=== PATIENT | male | born 1980 | race Hispanic/Latino ===

== ENCOUNTER 2018-01-30 22:06 | Inpatient (IN) | payer SELFPAY ==
[~2018-01-30 22:06] MED LIST: Iopamidol 370 76% 100 ML VIAL ONE
[2018-01-30] MEDS ORDERED: Ketorolac Tromethamine 30 MG/ML VIAL ONE (22:20)
[2018-01-30 22:33] LABS: Bilirubin Negative (Negative); Blood, Urine Negative (Negative); Clarity Clear (Clear); Glucose, Urine (Dipstick) Negative (Negative); Leukocyte Negative (Negative); Nitrite Negative (Negative); Protein, Urine (Dipstick) Trace mg/dL (Neg-Trace); Specific Gravity, Urine 1.015 (1.005-1.030)
[2018-01-30 22:54] LABS: #Basophils 0.1 thou/uL (0.0-0.2); #Lymphocytes 1.6 thou/uL (1.20-3.40); #Monocytes 1.4 thou/uL (0.11-0.59); #Neutrophils 13.8 thou/uL (1.40-6.50); %Basophils 0.6 % (0.0-1.0); %Eosinophils 0.2 % (0.0-10.0); %Lymphocytes 9.5 % (21.0-51.0); %Monocytes 8.1 % (0.0-10.0); %Neutrophils 81.6 % (42.0-75.0); Hemoglobin 17.4 g/dL (14.0-18.0); Mean Corpuscular HGB CONC 35.9 g/dL (32.0-36.0); Mean Corpuscular Hemoglobin 31.8 pg (27.0-31.0); Mean Corpuscular Volume 88.6 fl (80.0-94.0); Mean Platelet Volume 6.6 fL (7.4-10.4); Platelet Count 377 thou/uL (130-400); RBC Distribution Width 10.7 % (11.5-14.5); Red Blood Cell (RBC) Count 5.47 mill/uL (4.70-6.10); White Blood Cell (WBC) Count 16.9 thou/uL (4.8-10.8)
[2018-01-30 22:57] LABS: ALT (SGPT) 26 U/L (8-55); AST (SGOT) 28 U/L (5-34); Alkaline Phosphatase 98 U/L (40-150); Anion Gap 14 mmol/L (10-20); BUN (Urea Nitrogen) 8 mg/dL (8.9-20.6); Bilirubin, Total 0.6 mg/dL (0.2-1.2); Calc. Creatinine Clearance 0 mL/min (70-130); Calcium 9.9 mg/dL (7.8-10.44); Carbon Dioxide 26 mmol/L (22-29); Chloride 104 mmol/L (98-107); Estimated GFR-MDRD Greater than 90; Globulin 3.9 g/dL (2.4-3.5); Glucose 114 mg/dL (70-105); Potassium 3.4 mmol/L (3.5-5.1); Protein, Total 7.9 g/dL (6.0-8.3); Sodium 141 mmol/L (136-145)
--- NOTE | 2018-01-30 23:11 | RAD ---
PORTABLE CHEST: 01/30/18 HISTORY: Fever. Abdominal pain. The lungs appear clear. Heart and mediastinum unremarkable. No significant change from prior exam of 07/26/13. IMPRESSION: No acute finding. POS: [facility]
--- NOTE | 2018-01-30 23:30 | CT ---
CT ABDOMEN AND PELVIS WITH CONTRAST: 01/30/18 Multiple axial tomograms obtained through the abdomen and pelvis with IV enhancement. INDICATIONS: Right abdominal pain. Fever. FINDINGS: Lung bases are clear. Liver, spleen and pancreas unremarkable. Adrenal glands appear normal. Kidneys are unremarkable. There is contrast excretion into the collecting structures. Bladder is unre markable with contrast in the bladder mixed with urine. Small bowel loops unremarkable. Appendix appears normal. There is inflammatory haziness and stranding surrounding the right colon at the hepatic flexure. Ther e is a large pocket of extraluminal gas along the wall of the colon at this location measuring approx imately 1.0 cm. There are two to three other smaller gas pockets within this area of inflammation. No evidence of extraluminal fluid or abscess collection. Aorta is normal caliber. No mass or adenopathy seen. IMPRESSION: There is extraluminal gas along the wall of the right colon at the hepatic flexure with surrounding i nflammatory change. Etiology is not apparent. This may have represented a diverticulum with secondary diverticulitis and extraluminal gas from the diverticulum; however, I do not detect other diverticul a. While the extraluminal gas would indicate probable perforation, there is no fluid or abscess colle ction seen and a ruptured diverticulum is felt most likely. Close followup with antibiotic treatment is recommended. POS: [facility]
[2018-01-30] MEDS ORDERED: Sodium Chloride 0.9% 100 ML ONE (23:45)
[2018-01-30] MEDS ORDERED: Piperacillin/Tazobactam 4.5 GM VIAL ONE (23:45)
[2018-01-31 01:12] VITALS: BMI 21.6
[2018-01-31] MEDS ORDERED: Ondansetron ODT 4 MG TAB SL PRN (01:14)
[2018-01-31] MEDS ORDERED: Ondansetron HCl/PF 4 MG/2 ML Vial IVP PRN (01:14)
[2018-01-31] MEDS: Acetaminophen 325 MG TAB PO PRN ×3 (01:29→10:59)
[2018-01-31] MEDS: Sodium Chloride 0.9% 1,000 ML IV SCH ×2 (01:30→10:59)
[2018-01-31] MEDS ORDERED: Piperacillin/Tazobactam 3.375 GM in Sodium Chloride 0.9% 100 ML IVPB SCH (06:00)
[2018-01-31] MEDS: D5 1/2 NS w/20 mEq KCL 1,000 ML IV SCH ×2 (14:29→21:12)
[2018-01-31] MEDS: Acetaminophen 1,000 MG in Premix Bag 1 BAG IVPB PRN ×2 (16:37→23:34)
[2018-01-31] MEDS: Piperacillin/Tazobactam 3.375 GM in Sodium Chloride 0.9% 100 ML IVPB SCH ×2 (17:55→23:34)
[2018-01-31] MEDS ORDERED: Sodium Chloride 0.9% 1,000 ML IV SCH (18:45)
--- NOTE | 2018-02-01 02:03 | HP ---
CHIEF COMPLAINT: Abdominal pain. HISTORY OF PRESENT ILLNESS: Mr. Orourke is a 37-year-old man who presented to the emergency room late last night with a 1-week history of right upper quadrant pain. He states that the pain came on duri ng the day, but has been persistent since that time. He cannot think of any triggering or alleviatin g factors. Since being admitted to the hospital and placed on IV antibiotics and pain medication, he is not having any pain. He states that 2 days before admission, he began to have fevers and that on the day of admission, he started to have nausea and vomiting, so he decided to come into the emergen cy room. He denies any hematemesis or coffee-ground emesis. He denies any melena or hematochezia. He states that he has been eating normally and having normal bowel movements up until yesterday. Tod ay, he has passed gas, but has not had any bowel movements. He denies any further nausea or vomiting since admission. He did have some fevers this morning. His significant other volunteered the infor mation that on the day before his pain began, he went out with friends and drank about 12 beers and a lso did some cocaine, which he does periodically. He has not done any cocaine since that time nor lucas s he had any alcoholic drinks. He smokes rarely only about 2 cigarettes a day. He denies any unusua l ingestions or ill contacts. He states that the pain is not made worse by eating or by ambulating. PAST MEDICAL HISTORY: None. PAST SURGICAL HISTORY: None. FAMILY HISTORY: None. SOCIAL HISTORY: Patient smokes occasionally and also occasionally does cocaine and drinks intermitte ntly, but sometimes large amounts. No other reported drug use. REVIEW OF SYSTEMS: Ten-system review of systems is negative except per HPI and the following, the bridger ramirez does have some dysuria which is better since coming to the hospital. PHYSICAL EXAMINATION: VITAL SIGNS: T-max in the emergency room was 103.1, T current since admission is 102.1, T current is 98.2, heart rate has been in the 90s-100s, 94% saturated on room air with respiratory rate of 20, bl ood pressure 143/82. GENERAL: Reveals a healthy appearing young man, in no acute distress. He is not flushed or toxic in appearance. He is not jaundiced or icteric. HEENT: Unremarkable. NECK: Supple, without lymphadenopathy or thyroid nodules. HEART: Regular, but slightly tachycardic. No murmurs, rubs, or gallops are appreciated. LUNGS: Clear to auscultation bilaterally. He does not have any pain with deep inspiration. ABDOMEN: Soft and nondistended. No palpable masses or hernias. He is tender to palpation in the ri ght lateral and right upper quadrant without rigidity, rebound, or guarding. He is mildly tender to palpation in the right lower quadrant. EXTREMITIES: Warm and well perfused without edema. NEUROLOGIC: No focal deficits. PSYCHIATRIC: Alert, oriented, and appropriate, conversing appropriately through a Croatian interprete r. LABORATORY AND DIAGNOSTIC DATA: White count in the emergency room was elevated at 16.9, hematocrit 4 8.5, platelets 377,000, potassium is slightly low at 3.4, but other electrolytes were unremarkable. LFTs were normal and UA was clear. He did have slightly high urobilinogen, but no ketones, no protei ns, negative leukocyte esterase and nitrites. CT images are reviewed and I agree with the written re port. 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 No masses are appreciated. No generalized free air or free fluid and no abscess formation. ASSESSMENT: Likely diverticulitis, although other sources of colitis are not excluded. He does have a history of cocaine use just before his use, but this will be in a typical distribution for ischemi c colitis and he has not had any history of bloody diarrhea or generalized abdominal pain. Given the focal findings on CT exam, I favor conservative management with IV antibiotics. The patient has bee n started on this and symptomatically feels better since admission. If his lab work or examination o r vital signs worsens, then reimaging will be undertaken and it is possible that he will proceed to c olectomy, although hopefully this can be managed medically. If his symptoms improve with IV antibiot ics. His diet will be advanced and he will be transitioned to oral antibiotics and discharged home. I have recommended that in about 2 months after he has healed from this episode of diverticulitis, belem e undergo colonoscopy to rule out any underlying abnormalities. I have also recommended that he foll ow up with me at the completion of his course of antibiotics to make sure that his symptoms have reso lved.
[2018-02-01] MEDS: Piperacillin/Tazobactam 3.375 GM in Sodium Chloride 0.9% 100 ML IVPB SCH ×4 (05:24→23:26)
[2018-02-01] MEDS: D5 1/2 NS w/20 mEq KCL 1,000 ML IV SCH ×3 (05:26→23:26)
[2018-02-01 05:36] LABS: #Lymphocytes 1.6 thou/uL (1.20-3.40); #Monocytes 2.3 thou/uL (0.11-0.59); #Neutrophils 14.3 thou/uL (1.40-6.50); %Basophils 0.2 % (0.0-1.0); %Eosinophils 0.1 % (0.0-10.0); %Lymphocytes 8.9 % (21.0-51.0); %Monocytes 12.4 % (0.0-10.0); %Neutrophils 78.4 % (42.0-75.0); Hemoglobin 15.8 g/dL (14.0-18.0); Mean Corpuscular HGB CONC 33.5 g/dL (32.0-36.0); Mean Corpuscular Hemoglobin 30.9 pg (27.0-31.0); Mean Corpuscular Volume 92.3 fl (80.0-94.0); Mean Platelet Volume 5.9 fL (7.4-10.4); Platelet Count 345 thou/uL (130-400); RBC Distribution Width 11.5 % (11.5-14.5); Red Blood Cell (RBC) Count 5.11 mill/uL (4.70-6.10); White Blood Cell (WBC) Count 18.2 thou/uL (4.8-10.8)
[2018-02-01 05:46] LABS: Anion Gap 13 mmol/L (10-20); BUN (Urea Nitrogen) 4 mg/dL (8.9-20.6); Calc. Creatinine Clearance 137 mL/min (70-130); Calcium 9.2 mg/dL (7.8-10.44); Carbon Dioxide 22 mmol/L (22-29); Chloride 105 mmol/L (98-107); Estimated GFR-MDRD Greater than 90; Glucose 112 mg/dL (70-105); Potassium 3.6 mmol/L (3.5-5.1); Sodium 136 mmol/L (136-145)
[2018-02-01 14:59] LABS: Hemoglobin 16.1 g/dL (14.0-18.0); Mean Corpuscular HGB CONC 35.2 g/dL (32.0-36.0); Mean Corpuscular Hemoglobin 32.5 pg (27.0-31.0); Mean Corpuscular Volume 92.2 fl (80.0-94.0); Mean Platelet Volume 6.1 fL (7.4-10.4); Platelet Count 343 thou/uL (130-400); RBC Distribution Width 11.4 % (11.5-14.5); Red Blood Cell (RBC) Count 4.96 mill/uL (4.70-6.10); White Blood Cell (WBC) Count 15.3 thou/uL (4.8-10.8)
[2018-02-01 15:14] LABS: Band 13 % (5-11); Lymphocytes 6 % (21-51); MDiff Complete? YES; Monocytes 14 % (0-10); Neutrophil 64 % (42-75); PLT Morphology Comment Appears Adequate; RBC Morphology Normal; Reactive Lymphocytes 2 % (0-10)
--- NOTE | 2018-02-01 16:34 | PRG ---
DATE OF SERVICE: 02/01/2018 ATTENDING PHYSICIAN: Dr. Bill Flores. SUBJECTIVE: Mr. Orourke is a 37-year-old male who was admitted 1 day ago after a 1-week history of ri ght upper quadrant abdominal pain with a 2-day history of nausea and vomiting. Workup in the ER was suggestive of diverticulitis, although other sources of colitis could not be ruled out. He was admit malcom to the hospital by Dr. Archibald. He was started on a clear liquid diet. He has not had any diarr hea. Abdominal pain has been minimal. He did have an episode of vomiting this morning, however, has tolerated a clear liquid diet subsequently. OBJECTIVE: VITAL SIGNS: Temperature 100.2, pulse 93, respirations 18, O2 sat 94% on room air, blood pressure 14 6/84. GENERAL: Well-developed, well-nourished male, lying in bed, in no acute distress. HEENT: Atraumatic, normocephalic. PULMONARY: Bilateral breath sounds clear. Chest movement symmetrical. CARDIOVASCULAR: Regular rate and rhythm. Heart sounds normal. ABDOMEN: Soft, nondistended, mildly tender to palpation in the right upper, right lower and left low er. No rebound, no guarding. EXTREMITIES: Moves all extremities well. Neurovascularly intact. NEUROLOGIC: GCS 15. Awake, alert, oriented x3. LABORATORY STUDIES: CBC: WBC 15.3 down from 18.2 yesterday, RBC 4.96, hemoglobin 16.1, hematocrit 4 5.7, platelets 343,000. Chemistry: Sodium 136, potassium 3.6, chloride 105, carbon dioxide 22, BUN 4, creatinine 0.75, glucose 112. ASSESSMENT: 1. The patient with likely diverticulitis. 2. Started on Zosyn IV. 3. WBC 15.3 today down from 18.2 yesterday. 13% bandemia. 4. Tolerating clear liquid diet. PLAN: 1. Continue IV antibiotics. 2. Monitor serial labs. 3. Monitor serial abdominal exams. 4. Continue clear liquid diet tonight. The patient was seen and examined with Dr. Flores, who agrees with plan.
[2018-02-02 05:00] LABS: Band 4 % (5-11); Eosinophils 1 % (0-10); Hemoglobin 14.8 g/dL (14.0-18.0); Lymphocytes 19 % (21-51); MDiff Complete? YES; Mean Corpuscular HGB CONC 33.2 g/dL (32.0-36.0); Mean Corpuscular Hemoglobin 30.6 pg (27.0-31.0); Mean Corpuscular Volume 92.2 fl (80.0-94.0); Mean Platelet Volume 6.2 fL (7.4-10.4); Monocytes 14 % (0-10); Neutrophil 62 % (42-75); PLT Morphology Comment Appears Adequate; Platelet Count 357 thou/uL (130-400); RBC Distribution Width 11.4 % (11.5-14.5); Red Blood Cell (RBC) Count 4.85 mill/uL (4.70-6.10); White Blood Cell (WBC) Count 11.6 thou/uL (4.8-10.8)
[2018-02-02] MEDS: Piperacillin/Tazobactam 3.375 GM in Sodium Chloride 0.9% 100 ML IVPB SCH ×3 (07:01→18:21)
[2018-02-02] MEDS: D5 1/2 NS w/20 mEq KCL 1,000 ML IV SCH (08:47)
[2018-02-02] MEDS ORDERED: traMADol HCl 50 MG TAB PO PRN (09:06)
[2018-02-02] MEDS: traMADol HCl 50 MG TAB PO SCH ×3 (10:10→21:11)
[2018-02-02] MEDS: Polyethylene Glycol 3350 17 GM Packet PO SCH (10:47)
[2018-02-02] MEDS: Bisacodyl 10 MG SUPP PR SCH (10:47)
[2018-02-02] MEDS ORDERED: ISOVUE-370 76%-LOCM 1 ML ONE (11:34)
--- NOTE | 2018-02-02 16:06 | PRG ---
DATE OF SERVICE: 02/02/2018 DAILY PROGRESS NOTE ATTENDING PHYSICIAN: Dr. Bill Flores. SUBJECTIVE: Mr. Orourke is a 37-year-old male who was admitted 2 days ago after a 1-week history with right upper quadrant abdominal pain and a 2-day history of nausea and vomiting. Workup in the ER wa s suggestive of diverticulitis, although other sources of colitis cannot be ruled out. He was admitt ed to the hospital by Dr. Archibald. He was started on a clear liquid diet which he has tolerated well . He has not had any further diarrhea. Abdominal pain has been minimal. He does complain of some p ain in the right upper and lower quadrant and right flank. OBJECTIVE: VITAL SIGNS: Temperature 98.0, pulse 80, respirations 16, O2 sat 97% on room air, blood pressure 138 /96. GENERAL: Well-developed, well-nourished male lying in bed in no acute distress. HEENT: Atraumatic, normocephalic. PULMONARY: Bilateral breath sounds clear. Chest movement symmetrical. CARDIOVASCULAR: Regular rate and rhythm. Heart sounds normal. ABDOMEN: Soft, nondistended, mildly tender in the right upper and right lower quadrant. No rebound, no guarding. EXTREMITIES: Moves all extremities well. Neurovascularly intact. NEUROLOGIC: GCS 15. Awake, alert and oriented x3. LABORATORY DATA: None for today. ASSESSMENT: 1. Patient with abdominal pain localized to right side. 2. Started on Zosyn IV. 3. WBC continues to trend down 11.6 today down from 15.3 yesterday. 4. Tolerating clear liquid diet. 5. Reports no bowel movement in several days. PLAN: 1. Continue IV antibiotics. 2. MiraLax and Dulcolax suppository today. 3. Monitor serial abdominal exams. 4. Increase diet to regular. 5. Encourage ambulation. The patient was seen and examined with Dr. Flores who agrees with plan.
--- NOTE | 2018-02-02 17:50 | CT ---
CT ANGIOGRAM ABDOMEN AND PELVIS: 02/02/2018 HISTORY: Abdominal pain with eating. Cocaine use. Evaluate for mesenteric ischemia. COMPARISON: CT abdomen and pelvis from 01/30/2018. TECHNIQUE: Serial axial CT imaging at 2.5 mm intervals from the lung bases through the pubic symphysis, with IV contrast, using a CT angiogram protocol. Coronal and sagittal 3D reformatted imaging obtained. FINDINGS: The imaged lung bases are unremarkable. No free intraperitoneal air is noted. Lack of oral contrast limits assessment of the bowel. The liver, spleen, pancreas, adrenal glands, and kidneys are unremarkable. There is a focal area of colonic wall thickening within the mid portion of the ascending colon, as se en on the prior examination. There is a fluid collection along the posterior aspect of the ascending colon in this region, which contains gas and abuts the lower pole of the right kidney. On the recen t study performed three days prior, this was primarily a gas collection, which appeared to represent an extraluminal gas collection, on the basis of a focal colonic perforation versus a prominent divert iculum. Now, in this region, there is a 2.2 x 1.6 cm rim-enhancing fluid collection with adjacent in flammatory fat stranding. There is no evidence for bowel obstruction or appendicitis. There is no aneurysm or dissection of the abdominal aorta. The imaged arterial structures of the pel vis are unremarkable. The inferior mesenteric artery, superior mesenteric artery, and celiac axis ar e patent. There are two patent renal arteries on the right, and there is a single patent renal arter y on the left. The common hepatic artery emanates from the superior mesenteric artery. There is no lymphadenopathy identified within the retroperitoneum, the mesentery, or the pelvis, and no acute oss eous abnormality is noted. IMPRESSION: 1. Focal area of ascending colonic wall inflammatory change/wall thickening, with a fluid and gas co llection along the posterior margin of the ascending colon, abutting the lower pole of the right kidn ey. This is suspicious for abscess on the basis of focal colonic perforation and/or ascending coloni c diverticulitis with associated perforation. Surgical consultation advised. 2. Arterial structures of the abdomen and pelvis are unremarkable. CODE T POS: [facility]
[2018-02-03] MEDS: Piperacillin/Tazobactam 3.375 GM in Sodium Chloride 0.9% 100 ML IVPB SCH ×5 (00:47→23:25)
[2018-02-03] MEDS: traMADol HCl 50 MG TAB PO SCH ×4 (03:32→21:12)
[2018-02-03] MEDS: Polyethylene Glycol 3350 17 GM Packet PO SCH (09:31)
[2018-02-03] MEDS: Bisacodyl 10 MG SUPP PR SCH (09:35)
[2018-02-04] MEDS: traMADol HCl 50 MG TAB PO SCH ×3 (03:18→15:38)
[2018-02-04] MEDS: Piperacillin/Tazobactam 3.375 GM in Sodium Chloride 0.9% 100 ML IVPB SCH ×2 (05:39→12:17)
[2018-02-04 06:01] LABS: #Basophils 0.1 thou/uL (0.0-0.2); #Eosinphils 0.2 thou/uL (0.0-0.7); #Lymphocytes 1.8 thou/uL (1.20-3.40); #Monocytes 0.9 thou/uL (0.11-0.59); #Neutrophils 4.4 thou/uL (1.40-6.50); %Basophils 0.8 % (0.0-1.0); %Eosinophils 2.9 % (0.0-10.0); %Lymphocytes 24.8 % (21.0-51.0); %Monocytes 11.9 % (0.0-10.0); %Neutrophils 59.6 % (42.0-75.0); Mean Corpuscular Hemoglobin 31.4 pg (27.0-31.0); Mean Corpuscular Volume 92.3 fl (80.0-94.0); Mean Platelet Volume 6.6 fL (7.4-10.4); Platelet Count 413 thou/uL (130-400); RBC Distribution Width 11.5 % (11.5-14.5); White Blood Cell (WBC) Count 7.4 thou/uL (4.8-10.8)
[2018-02-04 06:08] LABS: Anion Gap 14 mmol/L (10-20); BUN (Urea Nitrogen) 12 mg/dL (8.9-20.6); Calc. Creatinine Clearance 140 mL/min (70-130); Calcium 9.4 mg/dL (7.8-10.44); Carbon Dioxide 25 mmol/L (22-29); Chloride 103 mmol/L (98-107); Estimated GFR-MDRD Greater than 90; Glucose 78 mg/dL (70-105); Potassium 3.7 mmol/L (3.5-5.1); Sodium 138 mmol/L (136-145)
[2018-02-04] MEDS: Polyethylene Glycol 3350 17 GM Packet PO SCH (09:06)
[2018-02-04] MEDS: Bisacodyl 10 MG SUPP PR SCH (09:06)
[2018-02-04] MEDS ORDERED: Ciprofloxacin 500 MG TAB PO SCH ×2 (14:30→20:00)
[2018-02-04] MEDS ORDERED: metroNIDAZOLE 500 MG TAB PO SCH (15:00)
[2018-02-04 17:33] VITALS: BP 145/81; TEMP 98.4
== END 2018-02-04 18:07 | disposition home or self-care (01) | DRG 392 ==
LOC: SCSER 22:06 → SURG A 01-31 00:45
PROVIDERS: ADMIT Surgery; ATTEND Surgery
DX: K57.92 Diverticulitis of intestine, part unspecified, without perforation or abscess without bleeding (principal); F17.210 Nicotine dependence, cigarettes, uncomplicated; F14.10 Cocaine abuse, uncomplicated
CPT/HCPCS: 36415; 71045; 74174; 74177; 80048; 80053; 81003; 83605; 85007; 85025; 85027; 87040; 87086; 96360; 96365; 96367; 96375; J0131; J1885; J2270; J2543; J3370; J7050

== ENCOUNTER 2018-03-12 02:12 | Inpatient (IN) | payer SELFPAY ==
[2018-03-12 02:57] LABS: #Basophils 0.1 thou/uL (0.0-0.2); #Monocytes 1.3 thou/uL (0.11-0.59); #Neutrophils 14.3 thou/uL (1.40-6.50); %Basophils 0.7 % (0.0-1.0); %Eosinophils 0.1 % (0.0-10.0); %Lymphocytes 5.7 % (21.0-51.0); %Monocytes 7.7 % (0.0-10.0); %Neutrophils 85.8 % (42.0-75.0); Hemoglobin 16.2 g/dL (14.0-18.0); Mean Corpuscular HGB CONC 36.8 g/dL (32.0-36.0); Mean Corpuscular Hemoglobin 30.8 pg (27.0-31.0); Mean Corpuscular Volume 83.9 fL (78.0-98.0); Mean Platelet Volume 6.4 fL (7.4-10.4); Platelet Count 283 thou/uL (130-400); RBC Distribution Width 10.8 % (11.5-14.5); Red Blood Cell (RBC) Count 5.26 mill/uL (4.70-6.10); White Blood Cell (WBC) Count 16.6 thou/uL (4.8-10.8)
[2018-03-12] MEDS ORDERED: Ketorolac Tromethamine 30 MG/ML VIAL ONE (02:57)
[2018-03-12 03:10] LABS: ALT (SGPT) 14 U/L (8-55); AST (SGOT) 11 U/L (5-34); Alkaline Phosphatase 78 U/L (40-150); Anion Gap 13 mmol/L (10-20); BUN (Urea Nitrogen) 12 mg/dL (8.9-20.6); Bilirubin, Total 0.7 mg/dL (0.2-1.2); Calc. Creatinine Clearance 0 mL/min (70-130); Calcium 9.4 mg/dL (7.8-10.44); Carbon Dioxide 23 mmol/L (22-29); Chloride 105 mmol/L (98-107); Estimated GFR-MDRD 85; Globulin 3.2 g/dL (2.4-3.5); Glucose 131 mg/dL (70-105); Potassium 3.3 mmol/L (3.5-5.1); Protein, Total 7.2 g/dL (6.0-8.3); Sodium 138 mmol/L (136-145)
[2018-03-12] MEDS ORDERED: Dexamethasone 10 MG/ML VIAL ONE (03:10)
[2018-03-12] MEDS ORDERED: Famotidine/PF 20 mg/2ml Vial ONE (03:10)
[2018-03-12] MEDS ORDERED: Metoclopramide HCl 10 MG/2 ML VIAL ONE (03:10)
[2018-03-12 03:12] LABS: Bilirubin Negative (Negative); Blood, Urine Negative (Negative); Clarity Clear (Clear); Glucose, Urine (Dipstick) Negative (Negative); Leukocyte Negative (Negative); Nitrite Negative (Negative); Protein, Urine (Dipstick) 30 mg/dL (Neg-Trace); Specific Gravity, Urine 1.024 (1.002-1.036)
[2018-03-12 03:20] LABS: Bacteria/HPF Rare-Few HPF (None Seen); Hyaline Casts/LPF 0-3 HYALINE CAST LPF (0-3 Hyaline); RBC/HPF 0-3 HPF (0-3); Squamous Epithelial 0-3 HPF (0-3); WBC/HPF 0-3 HPF (0-3)
[2018-03-12] MEDS ORDERED: Piperacillin/Tazobactam 4.5 GM VIAL ONE (03:46)
[2018-03-12] MEDS ORDERED: Sodium Chloride 0.9% 100 ML ONE (03:48)
[2018-03-12] MEDS ORDERED: Acetaminophen 325 MG TAB ONE (04:02)
[2018-03-12 04:08] LABS: CKMB 0.2 ng/mL (0-6.6); Troponin I 0.017 ng/mL (< 0.028)
[2018-03-12 04:33] LABS: Amphetamine Not Detected (NotDetected); Barbiturates Screen Not Detected (NotDetected); Benzodiazepine Screen Not Detected (NotDetected); Cocaine Metabolite Screen Detected (NotDetected); Medtox Control Line Valid? VALID (VALID); Methadone Not Detected (NotDetected); Methamphetamine Not Detected (NotDetected); Opiate Screen Not Detected (NotDetected); Oxycodone Screen Not Detected (NotDetected); Phencyclidine (PCP) Not Detected (NotDetected); THC/Cannabinoid Screen Not Detected (NotDetected); Tricyclic Screen Not Detected (NotDetected)
[2018-03-12] MEDS ORDERED: Ondansetron ODT 4 MG TAB SL PRN (05:09)
[2018-03-12] MEDS ORDERED: Acetaminophen 325 MG TAB PO PRN (05:09)
[2018-03-12] MEDS ORDERED: Ondansetron HCl/PF 4 MG/2 ML Vial IVP PRN (05:09)
[2018-03-12 05:18] VITALS: BMI 24.3
[2018-03-12 05:43] LABS: HIV (1/2) Antibody/Antigen Non-Reactive (NonReactive); HIV 1/2 INDEX 0.14 S/CO (<1.00)
[2018-03-12 06:44] LABS: Lactic Acid 0.8 mmol/L (0.5-2.2)
--- NOTE | 2018-03-12 08:41 | RAD ---
PORTABLE CHEST: Date: 03/12/18 HISTORY: Fever. Left-sided pain. FINDINGS: Heart size and mediastinum are within normal limits. Lungs are clear of any infiltrative process. No significant bony findings. IMPRESSION: No active intrathoracic disease. POS: [facility]
[2018-03-12] MEDS ORDERED: Bisacodyl 5 MG TAB PO PRN (08:55)
[2018-03-12] MEDS ORDERED: Acetaminophen 650 MG Suppository PR PRN (08:55)
[2018-03-12] MEDS ORDERED: Vancomycin HCl 1 GM in Premix Bag 1 BAG IVPB SCH (09:00)
[2018-03-12] MEDS: Sodium Chloride 0.9% 1,000 ML IV SCH (09:53)
[2018-03-12] MEDS: Enoxaparin Sodium 40 MG/0.4 ML SYRINGE SC SCH (09:53)
--- NOTE | 2018-03-12 12:39 | CT ---
CT OF ABDOMEN AND PELVIS PERFORMED WITH INTRAVENOUS CONTRAST ENHANCEMENT: HISTORY: Abdominal pain right lower quadrant with fever or unknown origin. COMPARISON: 01/30/18 and 02/02/18 CT examinations. FINDINGS: The lung ulrich are clear of any infiltrative process. The liver, spleen, pancreas, and gallbladder regions appear unremarkable. Right and left adrenal glands and right and left kidneys are normal in size and appearance. There is no significant periaortic or mesenteric adenopathy. There has been what appears to be essentially c omplete resolution of the right colon findings. The area of extraluminal gas and fluid has resolved. The appendix is unremarkable. CT OF PELVIS PERFORMED WITH CONTRAST ENHANCEMENT: A moderate amount of stool is seen within the descending and the sigmoid colon as well as rectum. No free fluid, adenopathy, or mass. IMPRESSION: Resolution of the right-sided colon findings. No acute intraabdominal process seen at this time. POS: [facility]
[2018-03-12] MEDS: Piperacillin/Tazobactam 4.5 GM in Sodium Chloride 0.9% 100 ML IVPB SCH ×2 (13:01→21:03)
[2018-03-12] MEDS ORDERED: Potassium Chloride 20 MEQ TAB PO SCH (14:15)
--- NOTE | 2018-03-12 14:22 | HP ---
PRIMARY CARE PHYSICIAN: None. CHIEF COMPLAINT: Fevers. HISTORY OF PRESENT ILLNESS: Mr. Orourke is a pleasant 37-year-old gentleman who was seen at [facility] on 03/12/2018. He was hospitalized at this facility from 01/30/2018 to 02/04/2018 under the Surgical Service for acu te diverticulitis. He was managed conservatively and discharged home on antibiotics. Over the last 3 days, he has had fevers on and off. He denies any nausea, vomiting or diarrhea. He also reports pain in his throat. He denies any chest pain. His last bowel movement was yesterday. He denies any blood in stools. He denies any cough. He reports abdominal pain, below the umbilicus, on and off, sharp, 10/10 at its worst, nonradiating, not accompanied by nausea, vomiting or diarrhea. He cannot recall any aggravating or relieving facto rs. He presented to [facility] Emergency Room and was transferred to [facility] [place]. REVIEW OF SYSTEMS: All other systems reviewed and found to be negative. PAST MEDICAL HISTORY: Hypertension and diverticulitis. PAST SURGICAL HISTORY: None. FAMILY HISTORY: No family history of coronary artery disease. SOCIAL HISTORY: The patient uses cocaine occasionally. He smokes 1 pack of cigarettes a week. He d rinks alcohol on a social basis. ALLERGIES: No known drug allergies. CURRENT MEDICATIONS: None. PHYSICAL EXAMINATION: GENERAL: Mr. Haven Leos is awake and alert, not in acute distress. VITAL SIGNS: Blood pressure is 113/75, pulse 70, respiratory rate 16, and oxygen saturation 97% on r oom air. He has a temperature of 97.3 degrees Fahrenheit. EYES: No scleral icterus. No conjunctival pallor. ENT: Moist mucosal membranes, no oropharyngeal erythema or exudates. NECK: Supple, nontender. Trachea is midline. RESPIRATORY: Accessory muscles of breathing are not active. Chest wall movements are symmetric bila terally. LUNGS: Clear to auscultation without wheeze, rhonchi or crepitations. CARDIOVASCULAR: S1 and S2 are heard, regular. Peripheral pulses palpable. No carotid bruit, no per icardial rub. ABDOMEN: Soft, mild tenderness below the umbilicus, but no guarding or rigidity, bowel sounds are he uriel, no hepatomegaly, no splenomegaly. NEUROLOGIC: Cranial nerves II-XII intact. Deep tendon reflexes 2+. MUSCULOSKELETAL: Power is 5/5 in all 4 extremities. SKIN: No rashes or subcutaneous nodules. LYMPHATIC: No cervical lymphadenopathy. PSYCHIATRIC: Normal mood, normal affect. The patient is oriented to person, place, and time. DATABASE: Mr. Haven Leos's labs and investigations were reviewed. I reviewed his electrocardiogram , which shows sinus tachycardia, no ST changes to suggest an acute coronary syndrome. I also reviewe d his chest x-ray, which does not show any pulmonary infiltrates. He has leukocytosis with 16,600 white cells, of which 85.8% are neutrophils, normal hemoglobin, mo l platelet count, normal sodium, decreased potassium of 3.3, elevated lactic acid of 2.4, which has s ubsequently normalized to 0.8, normal creatinine, normal liver profile, normal troponin I, urinalysis positive only for protein, urine toxicology screen positive for cocaine metabolites and nonreactive HIV 1 and 2 antigens and antibodies. ASSESSMENT AND PLAN: Mr. Haven Leos is a pleasant 37-year-old gentleman who was seen at [facility] on 03/12/2018. His problem list includes: 1. Sepsis: Mr. Haven Leos is presenting with sepsis, most likely secondary to bacteremia or an abd ominal source of infection. He will be admitted to the hospital for further management. We will obt ain CT scan of abdomen and pelvis to rule out intra-abdominal source of infection. We will also cont inue him on vancomycin and Zosyn, which were already started in the emergency room. We will await cu ltures. 2. Hypertension: Blood pressure is controlled at this point. We will monitor vital signs and add a ntihypertensives as needed. 3. Hypokalemia: We will replace potassium. 4. Tobacco abuse: The patient has been counseled regarding tobacco cessation. 5. Recreational drug use: The patient has been counseled regarding recreational drug use. LEVEL OF RISK: High. LEVEL OF COMPLEXITY: High.
[2018-03-12] MEDS: Vancomycin HCl 1.5 GM in Sodium Chloride 0.9% 250 ML 300 ML IVPB SCH (14:26)
[2018-03-12] MEDS ORDERED: Iopamidol 370 76% 50 ML VIAL FS ONE (15:00)
[2018-03-12] MEDS ORDERED: Iopamidol 370 76% 100 ML VIAL ONE (15:00)
[2018-03-12] MEDS: Acetaminophen 325 MG TAB PO PRN (20:39)
[2018-03-13] MEDS: Vancomycin HCl 1.5 GM in Sodium Chloride 0.9% 250 ML 300 ML IVPB SCH ×3 (00:10→13:41)
[2018-03-13] MEDS: Sodium Chloride 0.9% 1,000 ML IV SCH ×3 (03:42→20:25)
[2018-03-13 05:44] LABS: #Lymphocytes 1.1 thou/uL (1.20-3.40); #Monocytes 1.2 thou/uL (0.11-0.59); #Neutrophils 13.6 thou/uL (1.40-6.50); %Eosinophils 0.2 % (0.0-10.0); %Lymphocytes 6.6 % (21.0-51.0); %Monocytes 7.5 % (0.0-10.0); %Neutrophils 85.7 % (42.0-75.0); Hemoglobin 14.4 g/dL (14.0-18.0); Mean Corpuscular HGB CONC 34.1 g/dL (32.0-36.0); Mean Corpuscular Hemoglobin 31.2 pg (27.0-31.0); Mean Corpuscular Volume 91.5 fL (78.0-98.0); Mean Platelet Volume 6.4 fL (7.4-10.4); Platelet Count 300 thou/uL (130-400); RBC Distribution Width 11.8 % (11.5-14.5); Red Blood Cell (RBC) Count 4.62 mill/uL (4.70-6.10); White Blood Cell (WBC) Count 15.9 thou/uL (4.8-10.8)
[2018-03-13 05:55] LABS: Vancomycin, Trough 16.3 ug/mL
[2018-03-13 05:57] LABS: Anion Gap 8 mmol/L (10-20); BUN (Urea Nitrogen) 9 mg/dL (8.9-20.6); Calc. Creatinine Clearance 160 mL/min (70-130); Calcium 8.8 mg/dL (7.8-10.44); Carbon Dioxide 28 mmol/L (22-29); Chloride 107 mmol/L (98-107); Estimated GFR-MDRD Greater than 90; Glucose 128 mg/dL (70-105); Sodium 139 mmol/L (136-145)
[2018-03-13] MEDS: Piperacillin/Tazobactam 4.5 GM in Sodium Chloride 0.9% 100 ML IVPB SCH ×2 (06:21→13:41)
--- NOTE | 2018-03-13 09:49 | PDOC.PN ---
- Subjective Encounter Start Date: 03/13/18 Encounter Start Time: 09:47 Subjective: no abd pain or fever overnite - Objective MAR Reviewed: Yes Vital Signs & Weight: Vital Signs (12 hours) Temp Pulse Resp BP Pulse Ox 03/13/18 07:25 98.6 F 66 18 125/83 98 03/13/18 03:15 97.6 F 73 16 99 Weight Weight 177 lb 9.6 oz I&O: 03/12/18 03/13/18 03/14/18 06:59 06:59 06:59 Intake Total 4167 Output Total 1025 Balance 3142 Result Diagrams: 03/13/18 05:01 03/13/18 05:01 Phys Exam - Physical Examination Neck: no JVD Respiratory: clear to auscultation bilateral Cardiovascular: RRR, no significant murmur Gastrointestinal: soft, non-tender, no distention, positive bowel sounds Musculoskeletal: no edema, pulses present Dx/Plan (1) Fever Code(s): R50.9 - FEVER, UNSPECIFIED Status: Acute (2) Abdominal pain Code(s): R10.9 - UNSPECIFIED ABDOMINAL PAIN Status: Acute (3) Lactic acidosis Code(s): E87.2 - ACIDOSIS Status: Acute (4) Cocaine abuse Code(s): F14.10 - COCAINE ABUSE, UNCOMPLICATED Status: Acute (5) HTN (hypertension) Code(s): I10 - ESSENTIAL (PRIMARY) HYPERTENSION Status: Chronic Qualifiers: Hypertension type: essential hypertension Qualified Code(s): I10 - Essential (primary) hypertension - Plan no obvious source of fever, pain -: abd US pending -: cont current tx * .
--- NOTE | 2018-03-13 10:36 | ULT ---
GALLBLADDER ULTRASOUND: Date: 03/13/18 INDICATION: Epigastric pain, evaluate for cholecystitis. FINDINGS: No acute gallbladder pathology. There is mild contraction of the gallbladder with presumed physiologi c mild thickening of the gallbladder wall, although less than 3.0 mm. There is no biliary ductal dila tation or ascites. No focal hepatic lesion. IMPRESSION: No definite acute abnormality of the right upper quadrant by sonographic evaluation. POS: [facility]
[2018-03-13] MEDS: Enoxaparin Sodium 40 MG/0.4 ML SYRINGE SC SCH (12:47)
[2018-03-13] MEDS: Acetaminophen 325 MG TAB PO PRN ×2 (12:56→20:27)
[2018-03-14] MEDS: Acetaminophen 325 MG TAB PO PRN (08:02)
[2018-03-14] MEDS: Enoxaparin Sodium 40 MG/0.4 ML SYRINGE SC SCH (08:02)
[2018-03-14] MEDS: Sodium Chloride 0.9% 1,000 ML IV SCH (08:03)
[2018-03-14 09:23] LABS: #Lymphocytes 1.9 thou/uL (1.20-3.40); #Monocytes 1.2 thou/uL (0.11-0.59); #Neutrophils 7.9 thou/uL (1.40-6.50); %Basophils 0.2 % (0.0-1.0); %Eosinophils 0.2 % (0.0-10.0); %Lymphocytes 17.1 % (21.0-51.0); %Monocytes 11.2 % (0.0-10.0); %Neutrophils 71.2 % (42.0-75.0); Hemoglobin 13.8 g/dL (14.0-18.0); Mean Corpuscular HGB CONC 33.5 g/dL (32.0-36.0); Mean Corpuscular Hemoglobin 30.9 pg (27.0-31.0); Mean Corpuscular Volume 92.2 fL (78.0-98.0); Mean Platelet Volume 6.5 fL (7.4-10.4); Platelet Count 314 thou/uL (130-400); Red Blood Cell (RBC) Count 4.48 mill/uL (4.70-6.10)
--- NOTE | 2018-03-14 14:14 | PDOC.PN ---
- Subjective Encounter Start Date: 03/14/18 Encounter Start Time: 10:30 Subjective: pt up in bed still has complains of pain to his ruq - Objective Vital Signs & Weight: Vital Signs (12 hours) Temp Pulse Resp BP Pulse Ox 03/14/18 12:23 98.2 F 03/14/18 08:23 98.2 F 73 16 134/83 98 03/14/18 08:00 97.8 F 68 16 03/14/18 04:28 97.8 F 68 16 126/83 96 Weight Weight 176 lb 5.917 oz I&O: 03/13/18 03/14/18 03/15/18 06:59 06:59 06:59 Intake Total 4167 Output Total 1025 Balance 3142 Result Diagrams: 03/14/18 09:00 03/13/18 05:01 Phys Exam - Physical Examination HEENT: PERRLA, moist MMs, sclera anicteric, TM's clear, oral pharynx no lesions , 2+ tonsils Neck: no nodes, no JVD, supple, full ROM Respiratory: no wheezing, no rales, no rhonchi, wheezing present, clear to auscultation bilateral Cardiovascular: RRR, no significant murmur, no rub, gallop, irregular Gastrointestinal: soft mild pain on palpation of RUQ Musculoskeletal: no edema, pulses present, edema present Dx/Plan (1) Abdominal pain Code(s): R10.9 - UNSPECIFIED ABDOMINAL PAIN Status: Acute (2) Fever Code(s): R50.9 - FEVER, UNSPECIFIED Status: Acute (3) HTN (hypertension) Code(s): I10 - ESSENTIAL (PRIMARY) HYPERTENSION Status: Chronic Qualifiers: Hypertension type: essential hypertension Qualified Code(s): I10 - Essential (primary) hypertension - Plan ct abd/pel and RUQ negative -: ddimer negative -: spoke with surgery in regards to his fever and normal ct abd/pel -: recommened hida scan. will montior * . Review of Systems - Review of Systems ENT: negative: Ear Pain, Ear Discharge, Nose Pain, Nose Discharge, Nose Congestion, Mouth Pain, Mouth Swelling, Throat Pain, Throat Swelling, Other Respiratory: negative: Cough, Dry, Shortness of Breath, Hemoptysis, SOB with Excertion, Pleuritic Pain, Sputum, Wheezing Cardiovascular: negative: chest pain, palpitations, orthopnea, paroxysmal nocturnal dyspnea, edema, light headedness, other Gastrointestinal: Nausea, Abdominal Pain Genitourinary: negative: Dysuria, Frequency, Incontinence, Hematuria, Retention , Other - Medications/Allergies Allergies/Adverse Reactions: Allergies Allergy/AdvReac Type Severity Reaction Status Date / Time No Known Allergies Allergy Verified 07/26/13 01:35 Medications: Current Medications Acetaminophen (Tylenol) 650 mg PO Q4H PRN PRN Reason: Headache/Fever or Pain Last Admin: 03/14/18 08:02 Dose: 650 mg Acetaminophen (Tylenol) 650 mg MN Q4H PRN PRN Reason: Headache/Fever or Pain Bisacodyl (Dulcolax) 10 mg PO DAILYPRN PRN PRN Reason: Constipation Enoxaparin Sodium (Lovenox) 40 mg SC 0900 [facility] Last Admin: 03/14/18 08:02 Dose: 40 mg Sodium Chloride (Flush - Normal Saline) 10 ml IVF Q12HR BRIAN Last Admin: 03/14/18 08:13 Dose: Not Given Sodium Chloride (Flush - Normal Saline) 10 ml IVF PRN PRN PRN Reason: Saline Flush
--- NOTE | 2018-03-14 17:04 | NM ---
HEPATOBILIARY STUDY 03/14/18 HISTORY: Fever and persistent right upper quadrant abdominal pain. RADIOPHARMACEUTICAL: 5.1 millicuries technetium 99m Mebrofenin, IV. FINDINGS: There is prompt uptake in secretion of radiotracer by the liver. Gallbladder activity is faintly visu alized on three minute image with increase in activity in the gallbladder imaging up to 60 minutes. B owel activity is faintly visualized by 54 minutes. After 60 minutes of imaging, 8 oz of Ensure was ad ministered orally, and a gallbladder ejection fraction of 63% was obtained. A normal gallbladder ejec tion fraction is greater than 33%. IMPRESSION: 1. No evidence of a cystic or common duct obstruction. 2. Normal gallbladder ejection fraction. POS: [facility]
[2018-03-15 07:12] VITALS: BP 132/87; TEMP 98.3
[2018-03-15] MEDS: Enoxaparin Sodium 40 MG/0.4 ML SYRINGE SC SCH (08:19)
[2018-03-15] MEDS: Acetaminophen 325 MG TAB PO PRN (08:21)
== END 2018-03-15 10:31 | disposition home or self-care (01) | DRG 872 ==
LOC: SCSER 02:12 → 2NO 03:45 → T4-A 03-13 23:57
PROVIDERS: ADMIT Internal Medicine; ATTEND Internal Medicine
DX: A41.9 Sepsis, unspecified organism (principal); E87.2 Acidosis; I10 Essential (primary) hypertension; F14.10 Cocaine abuse, uncomplicated; F17.210 Nicotine dependence, cigarettes, uncomplicated; E87.6 Hypokalemia
CPT/HCPCS: 36415; 71045; 74177; 76705; 78227; 80048; 80053; 80202; 80306; 81003; 81015; 82553; 83605; 84484; 85025; 85379; 85652; 87040; 87081; 87086; 87389; 87430; 87804; 93005; 94760; A4216; A9537; J1100; J1650; J1885; J2543; J2765; J3370; J7050; S0028